=== PATIENT | female | born 1970 | race Caucasian/White ===

== ENCOUNTER → 2023-12-08 07:14 | Outpatient (REF) | payer BC, SELFPAY ==
[2023-12-08 08:07] LABS: % Basophils 1.8 % (0-2); % Eosinophils 5.3 % (0-6); % Immature Granulocytes 0.2 % (0-0.5); % Lymphocytes 27.8 % (20.5-51.1); % Monocytes 9.8 % (1.7-9.3); % Neutrophils 55.1 % (42.2-75.2); Absolute Basophils 0.1 10^3/uL (0-0.2); Absolute Eosinophils 0.3 10^3/uL (0-0.7); Absolute Lymphocytes 1.7 10^3/uL (1.2-3.4); Absolute Monocytes 0.6 10^3/uL (0.1-0.6); Absolute Neutrophils 3.3 10^3/uL (1.4-6.5); Hematocrit 42.5 % (37.0-47.0); Hemoglobin 14.4 g/dL (12.0-16.0); Mean Corp Hgb Conc. 33.9 g/dL (33.0-37.0); Mean Corpuscular Hgb 29.2 pg (27.0-31.0); Mean Corpuscular Volume 86.2 fL (81.0-99.0); Nucleated Red Blood Cells % 0 %; Platelet Count 313 10^3/uL (130-400); Red Blood Cell Count 4.93 10^6/uL (4.20-5.40); Red Cell Dist. Width 12.8 % (11.5-14.5); White Blood Cell Count 6.1 10^3/uL (4.8-10.8)
[2023-12-08 08:56] LABS: ALT (SGPT) 33 U/L (0-35); AST (SGOT) 33 U/L (14-36); Albumin 4.3 g/dl (3.5-5.0); Alkaline Phosphatase 109 U/L (38-126); Blood Urea Nitrogen 15 mg/dl (7-17); Carbon Dioxide 27 mmol/L (22-30); Chloride 104 mmol/L (98-107); Glucose 106 mg/dl (70-99); HDL Cholesterol 71 mg/dl; LDL Cholesterol, Calculated 86 mg/dl; Sodium 137 mmol/L (135-145); Total Bilirubin 0.7 mg/dl (0.2-1.3); Total Cholesterol 171 mg/dl (50-199); Total Protein 7.2 g/dl (6.3-8.2); Triglyceride 74 mg/dl (10-149); Very Low Density Lipoprotein 14 mg/dl (0-30); eGFR > 60.00
[2023-12-08 09:03] LABS: TSH Reflex To Free T4 1.92 uIU/ml (0.47-4.68)
[2023-12-09 23:01] LABS: Insulin, Random 23 uIU/mL
== END ==
LOC: REG 07:14
PROVIDERS: ATTENDING PHYSICIAN Nurse Practitioner Family; FAMILY PHYSICIAN Ophthalmology
DX: R73.01 Impaired fasting glucose (principal); E78.00 Pure hypercholesterolemia, unspecified; G47.33 Obstructive sleep apnea (adult) (pediatric); R53.83 Other fatigue
CPT/HCPCS: 36415; 80053; 80061; 83036; 83525; 84443; 85025

== ENCOUNTER 2023-12-28 02:30 | Emergency (ER) | payer BC, SELFPAY ==
--- NOTE | 2023-12-28 04:26 | DOWNTIME ---
There was a [employer] Downtime on 12/28/2023 from 0111 to 12/28/2023 at 0405. Downtime documentation of patient's care, including medication administrations, has been reconciled in the electronic record per guidelines. Refer to the
patient's paper chart under the miscellaneous tab to see printed paper medication records and downtime forms.
--- NOTE | 2023-12-28 04:26 | ED.GENMED ---
History of Present Illness
General
Chief Complaint: Breathing Problem
Source: patient and spouse
Exam Limitations: none
Nursing documentation reviewed up to this point in time: agreed with
History of Present Illness
History of Present Illness:
53-year-old female with a past medical history of SVT, prediabetes who presents to the emergency department for evaluation of palpitations. Patient reports abrupt onset about an hour prior to arrival when she got up to go to the bathroom. She says
that she began to notice her heart racing and she felt mildly short of breath. She says that she checked her heart rate on her Apple Watch and was told that she was in A-fib with significantly elevated heart rates. She came to the emergency room
for assessment. She s denies any chest pain. She denies any dizziness. She denies any other complaints. She says she has been in her normal state of health leading up to this. She does have a history of SVT in the past and follows with
[facility] for cardiology; she takes diltiazem and has been compliant without missed doses. She is not on any anticoagulation and has never had any history of A-fib or a flutter.
Past History
Past History
ED Past Medical History: None; Negative CAD, Cancer or IDDM
ED Past Surgical History: Gynecological
Social History
Tobacco: Non-smoker
Alcohol: Occasional
Drug: None
Personal:
Living: with family
Employment: Employed
Family History
Family History: Other (Reviewed and non-contributory)
Review of Systems
Review of Systems
All Other Systems: ROS reviewed and negative except as documented in HPI and ROS
Constitutional: Denies fever or chills
Respiratory: Reports trouble breathing; Denies cough
Cardiac: Reports palpitations; Denies chest pain, diaphoresis or syncope
ABD/GI: Denies abdominal pain, nausea, vomiting or diarrhea
: Denies flank pain
Musculoskeletal: Denies edema, neck pain or back pain
Neurological: Denies dizzy, headache, weakness or numbness
Phy Exam
Physical Exam
Physical Exam:
General: Awake, alert; no acute distress
Head: Normocephalic, atraumatic
Eyes: Conjunctiva normal
Throat: Airway intact, handling secretions
Neck: Trachea midline, supple without meningismus
Lungs: Clear to auscultation bilaterally, no wheezing, rales, rhonchi
Heart: Tachycardia with ostensibly regular rhythm, no murmurs, gallops, or rubs appreciated
Abd: Soft, non distended, nontender
Neuro: No gross deficits
Skin: no rash
Extremities: No edema in extremities, equal pulses in all extremities
Scores
[id number] Score for Afib Stroke Risk
Age in Years (65=0, 65-74=1, >/=75=2): <65
Sex (Female=+1): Female
Congestive Heart Failure History (Yes=+1): No
Hypertension History (Yes=+1): No
Stroke/TIA/Thromboembolism History (Yes=+2): No
Vascular Disease History (Yes=+1): No
Diabetes Mellitus (Yes=+1): No
Score: 1
Anticoagulation Recommendations: Consider anticoagulation (as validated in nonvalvular fib)
Heart Failure Risk
Heart Failure Risk Score: Not Applicable
Heart Score for Chest Pain Patients
STEMI patient?: Not applicable
Withdrawal Assessment of Alcohol
Withdrawal Assessment Completed?: Not applicable
Procedures
Cardioversion
Indication:: Other (atrial flutter)
Performed by:: Clay Mena MD
Synchronized?: Yes
Energy Used: 200 joules
Number of attempts: 1
Successful?: Yes
ASA Risk Score: Class II
Any reaction or bad outcome to prior sedation/anesthesia?: No history of a reaction
Sedation level to be attained: moderate
Chart and allergies reviewed: Yes
Patient reassessed prior to sedation: Yes
Time out completed at (validating right patient & procedure): 03:47
History of difficult intubation: No
Airway free of obstruction: Yes
Patient has a gag reflex: Yes
Patient is able to open mouth: Yes
Patient has no dentures: Yes
Patient has no loose teeth: Yes
Medication administered by Provider during Moderate Sedation: IV Propofol (mg)
Total dose administered: 90
Time drug administered: 03:47
Start Time: 03:47
Stop Time: 04:02
MDM/Problems Addressed
Differential Diagnosis Includes:
A-fib, a flutter, SVT, sinus tachycardia
MDM/Problems Addressed:
53-year-old female presents for evaluation of palpitations�abrupt onset an hour prior to arrival and her Apple Watch told her that she was in A-fib with accelerated heart rate. Blood pressure normal on arrival. Physical exam as above. EKG shows a
flutter with a heart rate of 142. Plan to place an IV check labs including a CBC and a CMP, thyroid studies. Will discuss with cardiology for recommendations�while she is not on anticoagulation she did have rather clear onset of symptoms may be a
reasonable candidate for ED cardioversion; will defer to cardiology recommendations.
Discussed with cardiology who recommended attempt at ED cardioversion and if successful can discharge on Eliquis. Discussed risks and benefits of procedure with patient she is agreeable to undergo the procedure, consent filed in medical record.
Will plan for cardioversion.
Patient successfully cardioverted as documented in procedure note. Asymptomatic after cardioversion, patient feeling well. Will continue to monitor plan for discharge if she remains asymptomatic in sinus rhythm after brief ED observation.
*Pulse Oximetry
Patient hypoxic: no
*EKG
Interpreted by ED Provider?: Yes
Heart Rate: 142
Rate: tachycardiac
Rhythm: atrial flutter
[place]: normal axis
Interval: normal interval
QRS Pattern: normal QRS
Ischemia: non-specific ST changes
*Critical Care Note
Total Time (30-74mins, 75-104mins- exclusive of procedures): 30
comment:
Critical care statement: A total of 30 minutes of critical care time was provided for this patient. This includes management of unstable vital signs, evaluation of the patient at bedside, frequent reassessment, discussion with
consultants/hospitalist, and review of pertinent medical records. This time was separate from time utilized to perform any aforementioned documented procedures
Data Reviewed
Source: patient and spouse
Patient Management
Discussion with other providers: Film Reader (Discussed with cardiology)
ED Attending Note
-
Portions of this chart may have been created with voice recognition software.� Occasional wrong word or��sound alike� substitutions may have occurred due to the inherent limitations of voice recognition software.
Discharge Plan
Departure
Patient with high blood pressure during this ER visit?: Yes
Discharge Problem:
Atrial flutter
Instructions: Atrial Flutter (DC), MODERATE SEDATION ADULT
Prescriptions:
New
Eliquis 5 mg tablet
5 mg PO BID Qty: 60 0RF
No Action
duloxetine 30 MG capsule,delayed release(DR/EC)
120 mg PO DAILY
fish oil-dha-epa 1 EACH capsule
1 ea PO DAILY
pilocarpine HCl 5 MG tablet
5 mg PO TID
hydroxychloroquine [Plaquenil] 200 MG tablet
200 mg PO BID
pregabalin [Lyrica] 150 MG capsule
150 mg PO TID
metoprolol succinate [Toprol XL] 25 MG tablet extended release 24 hr
12.5 mg PO DAILY Qty: 20 1RF
Referrals:
Adalberto Patel MD [Active] - Call in 1-3 days for appt
Charan Torres DO [Family Provider] -
Activity Restrictions/Additional Instructions:
Thank you for visiting the Emergency Department at [facility].
1. Please schedule a follow up appointment as directed. Call first thing tomorrow morning to make an appointment.
2. If indicated, please take your medications as instructed and indicated on discharge paperwork.
3. If any of your symptoms do not improve, or persist, or become more severe within 6-12 hours, please return to the emergency department for further care.
4. Please return to the emergency department if you develop a headache, neck pain/stiffness, fever greater than 100.4F, chest pain, shortness of breath, persistent nausea, vomiting, slurred speech, difficulty walking, numbness/tingling, weakness,
signs of infection or any other symptoms that are worrisome to you.
Please call [phone] if you have any questions.
[2023-12-28] MEDS: ELIQUIS 5 MG PO (05:05)
[2023-12-28 05:20] LABS: % Basophils 1.5 % (0-2); % Eosinophils 4.2 % (0-6); % Immature Granulocytes 0.3 % (0-0.5); % Lymphocytes 34.5 % (20.5-51.1); % Monocytes 10.2 % (1.7-9.3); % Neutrophils 49.3 % (42.2-75.2); Absolute Basophils 0.1 10^3/uL (0-0.2); Absolute Eosinophils 0.3 10^3/uL (0-0.7); Absolute Lymphocytes 2.7 10^3/uL (1.2-3.4); Absolute Monocytes 0.8 10^3/uL (0.1-0.6); Absolute Neutrophils 3.9 10^3/uL (1.4-6.5); Hematocrit 42.7 % (37.0-47.0); Hemoglobin 14.5 g/dL (12.0-16.0); Mean Corpuscular Hgb 29.1 pg (27.0-31.0); Mean Corpuscular Volume 85.7 fL (81.0-99.0); Mean Platelet Volume 10.2 fL (7.4-10.4); Nucleated Red Blood Cells % 0 %; Platelet Count 359 10^3/uL (130-400); Red Blood Cell Count 4.98 10^6/uL (4.20-5.40); Red Cell Dist. Width 12.7 % (11.5-14.5); White Blood Cell Count 7.9 10^3/uL (4.8-10.8)
[2023-12-28 05:24] LABS: ALT (SGPT) 32 U/L (0-35); AST (SGOT) 31 U/L (14-36); Albumin 4.2 g/dl (3.5-5.0); Alkaline Phosphatase 91 U/L (38-126); Blood Urea Nitrogen 20 mg/dl (7-17); Calcium 9.6 mg/dl (8.4-10.2); Carbon Dioxide 26 mmol/L (22-30); Chloride 104 mmol/L (98-107); Glucose 119 mg/dl (70-99); Potassium 3.8 mmol/L (3.5-5.1); Sodium 140 mmol/L (135-145); TSH Reflex To Free T4 4.48 uIU/ml (0.47-4.68); Total Bilirubin 0.6 mg/dl (0.2-1.3); Total Protein 6.9 g/dl (6.3-8.2); eGFR > 60.00
== END 2023-12-28 05:15 | disposition home or self-care (01) ==
LOC: EMR 02:30
PROVIDERS: EMERGENCY PHYSICIAN Emergency Medicine; FAMILY PHYSICIAN Family Medicine
DX: I48.92 Unspecified atrial flutter (principal); R03.0 Elevated blood-pressure reading, without diagnosis of hypertension; I47.10 Supraventricular tachycardia, unspecified
CPT/HCPCS: 99291; 92960; 99152; 80053; 84443; 85025; 93005

== ENCOUNTER → 2024-01-09 16:00 | Outpatient (REF) | payer BC, SELFPAY | LOC: DHCBC MAIN 16:00 | PROVIDERS: ATTENDING PHYSICIAN Internal Medicine; FAMILY PHYSICIAN Family Medicine | DX: I48.92 Unspecified atrial flutter (principal) | CPT/HCPCS: 93306 ==

== ENCOUNTER → 2024-01-17 06:27 | Outpatient (REF) | payer BC, SELFPAY ==
[2024-01-17] MEDS: FLUSH (NSS) 1 FLUSH IV (08:24)
[2024-01-17] MEDS: LEXISCAN 0.400000000000000022 MG IV (08:24)
== END ==
LOC: RCS 06:27
PROVIDERS: ATTENDING PHYSICIAN Internal Medicine; FAMILY PHYSICIAN Family Medicine
DX: I48.92 Unspecified atrial flutter (principal)
CPT/HCPCS: 78452; 93017; A9500; J2785

== ENCOUNTER → 2024-01-25 08:21 | Outpatient (REF) | payer BC, SELFPAY | LOC: RAD 08:21 | PROVIDERS: ATTENDING PHYSICIAN Internal Medicine; FAMILY PHYSICIAN Family Medicine | DX: R94.39 Abnormal result of other cardiovascular function study (principal); I48.0 Paroxysmal atrial fibrillation | CPT/HCPCS: 75574; Q9967 ==

== ENCOUNTER → 2024-03-26 17:03 | Outpatient (REF) | payer BC, SELFPAY | LOC: WDC 17:03 | PROVIDERS: ATTENDING PHYSICIAN Obstetrics & Gynecology Gynecology; FAMILY PHYSICIAN Family Medicine | DX: Z12.31 Encounter for screening mammogram for malignant neoplasm of breast (principal) | CPT/HCPCS: 77063; 77067 ==

== ENCOUNTER → 2024-04-05 08:06 | Outpatient (REF) | payer BC, SELFPAY ==
[2024-04-05 10:20] LABS: % Basophils 1.4 % (0-2); % Eosinophils 8.6 % (0-6); % Immature Granulocytes 0.2 % (0-0.5); % Lymphocytes 30.4 % (20.5-51.1); % Neutrophils 50.4 % (42.2-75.2); Absolute Basophils 0.1 10^3/uL (0-0.2); Absolute Eosinophils 0.6 10^3/uL (0-0.7); Absolute Monocytes 0.6 10^3/uL (0.1-0.6); Absolute Neutrophils 3.4 10^3/uL (1.4-6.5); Hematocrit 42.4 % (37.0-47.0); Hemoglobin 13.7 g/dL (12.0-16.0); Mean Corp Hgb Conc. 32.3 g/dL (33.0-37.0); Mean Corpuscular Hgb 28.8 pg (27.0-31.0); Mean Corpuscular Volume 89.1 fL (81.0-99.0); Mean Platelet Volume 10.1 fL (7.4-10.4); Nucleated Red Blood Cells % 0 %; Platelet Count 311 10^3/uL (130-400); Red Blood Cell Count 4.76 10^6/uL (4.20-5.40); Red Cell Dist. Width 12.9 % (11.5-14.5); White Blood Cell Count 6.6 10^3/uL (4.8-10.8)
[2024-04-05 10:49] LABS: ALT (SGPT) 30 U/L (0-35); AST (SGOT) 28 U/L (14-36); Albumin 4.5 g/dl (3.5-5.0); Alkaline Phosphatase 89 U/L (38-126); Blood Urea Nitrogen 22 mg/dl (7-17); Calcium 9.4 mg/dl (8.4-10.2); Carbon Dioxide 27 mmol/L (22-30); Chloride 104 mmol/L (98-107); Glucose 108 mg/dl (70-99); HDL Cholesterol 77 mg/dl; LDL Cholesterol, Calculated 84 mg/dl; Magnesium 2.1 mg/dl (1.6-2.3); Potassium 4.3 mmol/L (3.5-5.1); Sodium 141 mmol/L (135-145); Total Bilirubin 0.4 mg/dl (0.2-1.3); Total Cholesterol 175 mg/dl (50-199); Total Protein 7.4 g/dl (6.3-8.2); Triglyceride 74 mg/dl (10-149); Very Low Density Lipoprotein 14 mg/dl (0-30); eGFR > 60.00
[2024-04-05 10:53] LABS: FSH 68.1 mIU/ml; Free T4 1.11 ng/dl (0.78-2.19); Progesterone 0.72 ng/ml; Vitamin D, 25-OH*** 39.9 ng/mL (30-80)
[2024-04-05 10:56] LABS: Free T3 5.07 pg/ml (2.77-5.27)
[2024-04-05 11:07] LABS: TSH 1.14 uIU/ml (0.47-4.68)
[2024-04-05 11:29] LABS: Vitamin B12 649 pg/ml (239-931)
[2024-04-05 11:50] LABS: Glycohemoglobin (HgbA1c) 5.6 % (4.0-5.6)
[2024-04-06 18:58] LABS: DHEA Sulfate 73 ug/dL (19-205)
[2024-04-07 06:03] LABS: IGF-1 Z Score Calculation 0.8; Insulin-like Growth Factor I 163 ng/mL (49-234)
== END ==
LOC: HWLAB 08:06
PROVIDERS: ATTENDING PHYSICIAN Physician Assistant; FAMILY PHYSICIAN Family Medicine; REFERRING PHYSICIAN Family Medicine Sports Medicine
DX: E78.00 Pure hypercholesterolemia, unspecified (principal); Z13.1 Encounter for screening for diabetes mellitus; R73.01 Impaired fasting glucose; E88.810 Metabolic syndrome; E66.09 Other obesity due to excess calories; R20.0 Anesthesia of skin; N95.1 Menopausal and female climacteric states; R53.83 Other fatigue; E55.9 Vitamin D deficiency, unspecified
CPT/HCPCS: 36415; 80053; 80061; 82306; 82607; 82627; 82670; 83001; 83036; 83735; 84144; 84270; 84305; 84402; 84403; 84439; 84443; 84481; 85025

== ENCOUNTER 2024-06-15 21:16 | Emergency (ER) | payer BC, SELFPAY ==
[2024-06-15] VITALS (15 sets, daily range): BP systolic 119–208; BP diastolic 61–161
[2024-06-15 21:39] LABS: % Basophils 1.6 % (0-2); % Immature Granulocytes 0.3 % (0-0.5); % Lymphocytes 37.4 % (20.5-51.1); % Monocytes 8.4 % (1.7-9.3); % Neutrophils 49.3 % (42.2-75.2); Absolute Basophils 0.1 10^3/uL (0-0.2); Absolute Eosinophils 0.3 10^3/uL (0-0.7); Absolute Lymphocytes 3.4 10^3/uL (1.2-3.4); Absolute Monocytes 0.8 10^3/uL (0.1-0.6); Absolute Neutrophils 4.4 10^3/uL (1.4-6.5); Hematocrit 41.2 % (37.0-47.0); Hemoglobin 14.1 g/dL (12.0-16.0); Mean Corp Hgb Conc. 34.2 g/dL (33.0-37.0); Mean Corpuscular Volume 84.8 fL (81.0-99.0); Mean Platelet Volume 9.6 fL (7.4-10.4); Nucleated Red Blood Cells % 0 %; Platelet Count 321 10^3/uL (130-400); Red Blood Cell Count 4.86 10^6/uL (4.20-5.40); Red Cell Dist. Width 12.7 % (11.5-14.5)
[2024-06-15 21:57] LABS: ALT (SGPT) 18 U/L (0-35); AST (SGOT) 26 U/L (14-36); Albumin 4.6 g/dl (3.5-5.0); Alkaline Phosphatase 88 U/L (38-126); Blood Urea Nitrogen 20 mg/dl (7-17); Calcium 9.6 mg/dl (8.4-10.2); Carbon Dioxide 24 mmol/L (22-30); Chloride 106 mmol/L (98-107); Glucose 133 mg/dl (70-99); Magnesium 1.9 mg/dl (1.6-2.3); Potassium 3.4 mmol/L (3.5-5.1); Sodium 139 mmol/L (135-145); Total Bilirubin 0.4 mg/dl (0.2-1.3); Total Protein 7.4 g/dl (6.3-8.2); eGFR > 60.00
[2024-06-15] MEDS: ELIQUIS 5 MG PO (23:18)
--- NOTE | 2024-06-16 01:16 | ED.GENMED ---
History of Present Illness
General
Chief Complaint: Heart Rate Problem
Source: patient and spouse
Exam Limitations: none
Time Seen by Provider: 06/15/24 21:28
Nursing documentation reviewed up to this point in time: agreed with
History of Present Illness
History of Present Illness:
54-year-old female with a past medical history of A-fib/flutter, SVT, prediabetes, SUSSY who presents to the emergency room with her for evaluation of palpitations and tachycardia. Patient reports that she was resting this evening when she
had sudden onset of palpitations and dizziness, checked her heart rate using Apple Watch and found to be in atrial fibrillation. Heart rate in the 150s to 160s. Came to the emergency room for assessment. She did notably have similar episode in
December; she was cardioverted in the emergency room, started on Eliquis which she continued for 30 days and followed up with Dr. Patel. Eliquis was discontinued after 30 days and she is no longer on anticoagulation. She denies any symptoms
prior to this evening; has otherwise been in her normal state of health. She denies any chest pain. She says she has some mild shortness of breath. She denies any other complaints.
Past History
Past History
ED Past Medical History: None; Negative CAD, Cancer or IDDM
ED Past Surgical History: Gynecological
Social History
Tobacco: Non-smoker
Alcohol: Occasional
Drug: None
Personal:
Living: with family
Employment: Employed
Family History
Family History: Other (Reviewed and non-contributory)
Review of Systems
Review of Systems
All Other Systems: ROS reviewed and negative except as documented in HPI and ROS
Respiratory: Reports trouble breathing
Cardiac: Reports palpitations; Denies chest pain, diaphoresis or syncope
ABD/GI: Denies abdominal pain, nausea or vomiting
Musculoskeletal: Denies edema
Neurological: Reports dizzy; Denies headache
Phy Exam
Physical Exam
Physical Exam:
General: Awake, alert, not in acute distress
Head: Normocephalic, atraumatic
Eyes: Conjunctiva normal, pupils equal round reactive to light bilaterally
Throat: Airway intact, handling secretions
Neck: Trachea midline, supple without meningismus
Lungs: Clear to auscultation bilaterally, no wheezing, rales, rhonchi
Heart: Tachycardia with irregular rhythm, no murmurs, gallops, or rubs
Neuro: No gross deficits
Skin: no rash
Extremities: No edema in extremities, warm and well-perfused
Scores
[id number] Score for Afib Stroke Risk
Age in Years (65=0, 65-74=1, >/=75=2): <65
Sex (Female=+1): Female
Congestive Heart Failure History (Yes=+1): No
Hypertension History (Yes=+1): No
Stroke/TIA/Thromboembolism History (Yes=+2): No
Vascular Disease History (Yes=+1): No
Diabetes Mellitus (Yes=+1): No
Score: 1
Anticoagulation Recommendations: Consider anticoagulation (as validated in nonvalvular fib)
Heart Failure Risk
Heart Failure Risk Score: Not Applicable
Heart Score for Chest Pain Patients
STEMI patient?: Not applicable
Withdrawal Assessment of Alcohol
Withdrawal Assessment Completed?: Not applicable
Course
Orders/Labs/Results
Orders:
Orders
06/15/24 21:17
Electrocardiogram (*1) Urgent
Reason for Study: Tachycardia
EKG- Treatment ONCE
06/15/24 21:31
Complete Blood Count/With Diff Urgent
Comprehensive Metabolic Panel Urgent
Magnesium Urgent
06/15/24 21:59
Propofol [Diprivan] 20 ml .ROUTE .STK-MED
06/15/24 22:01
Apixaban [Eliquis] 5 mg PO ONCE ONE
Abnormal Lab Results
06/15/24
21:31
Absolute Monos (auto) 0.8 H 10^3/uL
(0.1-0.6)
Potassium 3.4 L mmol/L
(3.5-5.1)
BUN 20 H mg/dl
(7-17)
Glucose 133 H mg/dl
(70-99)
06/15/24 21:31
06/15/24 21:31
Vital Signs
Initial and Last Documented VS:
Initial Vital Signs
Pulse Resp
160 22
06/15/24 21:20 06/15/24 21:20
Last Documented Vital Signs
Temp Pulse Resp BP Pulse Ox
36.7 C 98 14 132/79 95
06/15/24 23:23 06/15/24 23:03 06/15/24 23:03 06/15/24 23:03 06/15/24 23:03
Procedures
Moderate Sedation
Moderate Sedation Start Time(when first medication is given): 22:05
Moderate Sedation Procedure End Time: 22:23
Cardioversion
Indication:: Afib
Performed by:: Clay Mena MD
Synchronized?: Yes
Energy Used: 200 joules
Number of attempts: 2 (200J x1, 300J x1)
Successful?: Yes
ASA Risk Score: Class II
Any reaction or bad outcome to prior sedation/anesthesia?: No history of a reaction
Sedation level to be attained: moderate
Chart and allergies reviewed: Yes
Patient reassessed prior to sedation: Yes
Time out completed at (validating right patient & procedure): 22:05
History of difficult intubation: No
Airway free of obstruction: Yes
Patient has a gag reflex: Yes
Patient is able to open mouth: Yes
Patient has no dentures: Yes
Patient has no loose teeth: Yes
Medication administered by Provider during Moderate Sedation: IV Propofol (mg)
Total dose administered: 160
Time drug administered: 22:05
Start Time: 22:05
Stop Time: 22:21
MDM/Problems Addressed
Differential Diagnosis Includes:
Symptomatic A-fib
MDM/Problems Addressed:
54-year-old female presents for evaluation of tachycardia and palpitations, Apple Watch notes A-fib. Similar episode in December was cardioverted in the ER; had 30 days of anticoagulation after cardioversion but is no longer on anticoagulation.
She sees Dr. Patel for cardiology. EKG on arrival confirms A-fib with RVR. Plan to place an IV check labs including a CBC and CMP. Check mag level. Will provide some fluids. Discussed with cardiology.
Labs reviewed: CBC unremarkable, CMP shows marginal hypokalemia, acceptable magnesium level. Case discussed with cardiology given clear onset just prior to arrival safe for ED cardioversion despite no anticoagulant on board. I did recommend 30
days of anticoagulation after cardioversion. I spoke to the patient and she is agreeable to this plan. Will proceed with ED cardioversion.
Patient cardioverted as documented procedure note. EKG confirms sinus rhythm. Will continue to monitor after sedation.
Patient awake and alert, feeling much better�'back to my normal self.' Heart rate in the 90s, sinus rhythm on the monitor. Stable for discharge will start on Eliquis. Advised to follow-up with cardiology as an outpatient. She is comfortable with
this plan. All questions answered.
Chronic conditions affecting care:
Atrial fibrillation/flutter
Acute Exacerbation and/or Progression of Chronic Illness:
Acutely hypertensive resolved without intervention�continue to monitor but no additional antihypertensives indicated at present
Acute Exacerbation and/or Progression of Chronic Illness: HTN
*Pulse Oximetry
Patient hypoxic: no
*EKG
Interpreted by ED Provider?: Yes
Heart Rate: 140
Rate: tachycardiac
Rhythm: a-fib
[place]: normal axis
Interval: normal interval
QRS Pattern: normal QRS
Ischemia: non-specific ST changes
*Critical Care Note
Total Time (30-74mins, 75-104mins- exclusive of procedures): Not Applicable
Data Reviewed
Review of Other/Old Records Reveals: Labs and Records
Source: patient, records and spouse
Patient Management
Discussion with other providers: Multi Share Program Coordinator (Discussed with cardiology)
ED Attending Note
-
Portions of this chart may have been created with voice recognition software.� Occasional wrong word or��sound alike� substitutions may have occurred due to the inherent limitations of voice recognition software.
Discharge Plan
Departure
Patient Disposition: Home (Routine Discharge)
Date of Disposition: 06/15/24
Time of Disposition: 23:29
Patient with high blood pressure during this ER visit?: Yes
Discharge Problem:
Atrial fibrillation status post cardioversion
Instructions: Atrial Fibrillation (DC), MODERATE SEDATION ADULT
Prescriptions:
New
Eliquis 5 mg tablet
5 mg PO BID Qty: 60 0RF
No Action
fish oil-dha-epa 1 EACH capsule
1 ea PO DAILY
pregabalin [Lyrica] 150 MG capsule
50 mg PO DAILY
Eliquis 5 mg tablet
5 mg PO BID Qty: 60 0RF
celecoxib [Celebrex] 200 mg Capsule
200 mg PO DAILY
pilocarpine HCl [Salagen (pilocarpine)] 5 mg Tablet
5 mg PO BID
atorvastatin 20 mg Tablet
20 mg PO DAILY
metformin 1,000 mg Tablet
1,000 mg PO DAILY
diltiazem HCl 180 mg Capsule,Ext.Rel 24h Degradable
180 mg PO DAILY
nortriptyline 50 mg Capsule
50 mg PO QPM
duloxetine [Cymbalta] 60 mg Capsule,Delayed Release(Dr/Ec)
60 mg PO QPM
Referrals:
Adalberto Patel MD [Active] - Call in 1-3 days for appt
Charan Torres DO [Family Provider] -
Activity Restrictions/Additional Instructions:
Thank you for visiting the Emergency Department at [facility].
1. Please schedule a follow up appointment as directed. Call first thing tomorrow morning to make an appointment.
2. If indicated, please take your medications as instructed and indicated on discharge paperwork.
3. If any of your symptoms do not improve, or persist, or become more severe within 6-12 hours, please return to the emergency department for further care.
4. Please return to the emergency department if you develop a headache, neck pain/stiffness, fever greater than 100.4F, chest pain, shortness of breath, persistent nausea, vomiting, slurred speech, difficulty walking, numbness/tingling, weakness,
signs of infection or any other symptoms that are worrisome to you.
Please call [phone] if you have any questions.
Interventions
Interventions:
*Risk Screen - Suicide Last Done: 06/15/24 21:26
*General Assessment Last Done: 06/15/24 21:26
*Neglect/Abuse Screening Last Done: 06/15/24 21:26
*Nursing Disposition Last Done: 06/15/24 23:40
ED- Cardiac Assessment Last Done: 06/15/24 21:30
ED- Pulmonary Assessment Last Done: 06/15/24 21:30
Discharge Date and Time
Discharge Date/Time: 06/15/24 23:42
Print Language: BULGARIAN
== END 2024-06-15 23:42 | disposition home or self-care (01) ==
LOC: EMR 21:16
PROVIDERS: EMERGENCY PHYSICIAN Emergency Medicine; FAMILY PHYSICIAN Family Medicine
DX: I48.91 Unspecified atrial fibrillation (principal); G47.33 Obstructive sleep apnea (adult) (pediatric); Z79.01 Long term (current) use of anticoagulants
CPT/HCPCS: 99283; 92960; 80053; 83735; 85025; 93005

== ENCOUNTER 2024-07-31 05:50 | Day surgery (SDC) | payer BC, SELFPAY ==
[2024-07-16 10:45] LABS: % Basophils 1.2 % (0-2); % Eosinophils 1.6 % (0-6); % Immature Granulocytes 0.2 % (0-0.5); % Lymphocytes 22.7 % (20.5-51.1); % Monocytes 9.1 % (1.7-9.3); % Neutrophils 65.2 % (42.2-75.2); Absolute Basophils 0.1 10^3/uL (0-0.2); Absolute Eosinophils 0.1 10^3/uL (0-0.7); Absolute Lymphocytes 1.9 10^3/uL (1.2-3.4); Absolute Monocytes 0.7 10^3/uL (0.1-0.6); Absolute Neutrophils 5.3 10^3/uL (1.4-6.5); Hematocrit 41.3 % (37.0-47.0); Hemoglobin 13.9 g/dL (12.0-16.0); Mean Corp Hgb Conc. 33.7 g/dL (33.0-37.0); Mean Corpuscular Hgb 28.5 pg (27.0-31.0); Mean Corpuscular Volume 84.8 fL (81.0-99.0); Mean Platelet Volume 9.6 fL (7.4-10.4); Nucleated Red Blood Cells % 0 %; Platelet Count 320 10^3/uL (130-400); Red Blood Cell Count 4.87 10^6/uL (4.20-5.40); Red Cell Dist. Width 12.6 % (11.5-14.5); White Blood Cell Count 8.2 10^3/uL (4.8-10.8)
[2024-07-16 10:55] LABS: ALT (SGPT) 19 U/L (0-35); AST (SGOT) 27 U/L (14-36); Albumin 4.8 g/dl (3.5-5.0); Alkaline Phosphatase 86 U/L (38-126); Blood Urea Nitrogen 17 mg/dl (7-17); Calcium 9.9 mg/dl (8.4-10.2); Carbon Dioxide 26 mmol/L (22-30); Chloride 101 mmol/L (98-107); Glucose 96 mg/dl (70-99); Potassium 4.2 mmol/L (3.5-5.1); Sodium 140 mmol/L (135-145); Total Bilirubin 0.6 mg/dl (0.2-1.3); Total Protein 7.4 g/dl (6.3-8.2); eGFR > 60.00
[2024-07-16 14:25] VITALS: BMI 35.6
[2024-07-31] VITALS (10 sets, daily range): BP systolic 117–148; BP diastolic 69–83
[2024-07-31 08:51] LABS: ACT-LR - POC 282 Seconds (116-155)
[2024-07-31 09:12] LABS: ACT-LR - POC 294 Seconds (116-155)
[2024-07-31 09:34] LABS: ACT-LR - POC 300 Seconds (116-155)
[2024-07-31 09:53] LABS: ACT-LR - POC 302 Seconds (116-155)
[2024-07-31 10:19] LABS: ACT-LR - POC 337 Seconds (116-155)
--- NOTE | 2024-07-31 11:02 | ITS.CL.ABL ---
[facility] - Ablation
Ablation
Procedure Report:
AFIB ablation:
Ms. Bautista is a very pleasant 54 yr old woman with symptomatic paroxysmal AF and atrial flutter and had recurrent atrial fibrillation failed Diltiazem and anticoagulated with Eliquis is recommended �AF / Flutter ablation.
Date of the Procedure:
07/31/2024
Indications:
Paroxysmal atrial fibrillation / Atrial Flutter
Pre-Operative Diagnosis:
Paroxysmal atrial fibrillation / Atrial Flutter
Post-Operative Diagnosis:
Paroxysmal atrial fibrillation / Atrial Flutter
Procedure Performed:
Atrial fibrillation ablation with Pulsed-Field approach for pulmonary vein isolation
Posterior wall isolation
Roof dependent flutter ablation
Mitral flutter ablation with lateral mitral isthmus ablation.
Performing Physician:
Phil Gordillo MD
Assistants:
EP staff
Anesthesia:
See anesthesia records
Detailed Description of the Procedure:
Written informed consent was obtained from the patient after a full explanation of the risks and benefits of the procedure including the risks of sedation and anesthesia.
The patient was brought to the electrophysiology laboratory in stable condition in fasting state. Continuous electrocardiographic and hemodynamic monitoring was initiated.
The initial rhythm was normal sinus rhythm.
The procedure site was meticulously prepared with surgical scrub and allowed to dry with no pooling. Sterile draping was applied to cover the procedure site. The image intensifier was draped with sterile bag and positioned over the patient. After
infusion of local anesthetic, vascular access was obtained under ultrasound guidance and sheaths were placed over guide wire as detailed below.
Sheath and Catheter Placement:
The following catheters / sheaths were placed
Sheaths:
��������� 17Fr steerable sheath (Faradrive�, [employer]) in right femoral upgraded from SL1 sheath
��������� 9Fr in right femoral vein
��������� 7Fr in right femoral vein
Catheters:
��������� Carto Pentaray mapping catheter � at locations of RA, LA
��������� Farawave� PFA catheter
��������� ICE catheter -AcuNav - at locations of RA, SVC, and RV.
��������� Decapolar Bard catheter in RA and CS
Intracardiac ECHO:
An 8-Cuban AcuNav intracardiac ECHO (ICE) probe was advanced through the 9-Cuban sheath in the right femoral vein into the right atrium under fluoroscopic and ICE ultrasound image guidance and a baseline ECHO study was performed. The left atrial
size was dilated. There was mild tricuspid regurgitation. The aortic valve was grossly normal. There was normal left ventricular systolic functions. There is trace pericardial effusion. All the four veins were identified and has flow identified.
During the procedure, ICE was used for monitoring of complications, guidance of trans-septal puncture, monitor the catheter position and tracking ablation lesions. No change in the pericardial space noted throughout the procedure.
Trans-septal Puncture:
Heparin was initiated and infused to maintain appropriate ACT. A J-tipped guidewire was advanced through the 8-Cuban sheath in the right femoral vein into the superior vena cava under fluoroscopic and ICE guidance. The 9-Cuban sheath was exchanged
for a SL1 sheath which was advanced into the superior vena cava. A BRK needle was placed in the SL1 sheath. The apparatus was withdrawn until it was in contact with the fossa ovalis. The position was adjusted based on fluoroscopy and ultrasound
images from ICE. Under fluoroscopic, hemodynamic and ICE ultrasound guidance, left atrium was cannulated by applying RF energy. Once atrial septum was cannulated, the BMW wire was advanced through the needle into the left atrium. The guide wire was
advanced into the left superior pulmonary vein. Both the sheath and the dilator was advanced into the left atrium. The dilator with the needle was withdrawn. Blood was aspirated from the SL1 and arterial blood confirmed. The sheath was flushed.
Saline injection noted into the left atrium on ICE.
The using the [employer] Protrack the SL1 was exchanged for Faradrive sheath. The mapping catheter was advanced in the sheath into the left pulmonary vein. Left atrial pressure was measured.
3D Electroanatomic Mapping:
Using the Penta-ray catheter advanced through sheath into the left atrium, an electroanatomic map (EAM) of the left atrium was created using Carto mapping system. The map was used for localization of catheter position and tacking of ablation
lesions.
The EAM of the left atrium showed 4 pulmonary veins with all 4 veins electrically connected to the body the LA. It showed no sign of significant scar in the LA. The LA was mildly dilated in size.
Following the EAM, preparation were made for ablation.
While mapping the LA, patient went into atrial fibrillation.
Ablation:
Ablation # 1: Pulmonary vein Isolation:
Glycopyrrolate 0.2 mg was given prior to the placement of ablation. Using K121 pulsed wave ablation system, pulmonary vein isolation was achieved. First the ablation catheter was placed in the LIPV and ostial ablation lesions were performed in a
counter clock palacio approach all around the PV ostium circumferentially. Then the catheter was placed on the antral location and multiple ablation lesions were placed circumferentially on the antrum of the vein.
In the similar fashion, the LSPV were isolated.
Then the catheter was moved to right sided veins. The ostial and antral ablations were placed as noted above to the RSPV and RIPV.
With the isolation of RIPV, patient went into sinus rhythm.
Ablation #2: Roof dependent flutter ablation
The venous entrance and exit block was tested and while in the posterior wall, patient went into fast atrial flutter at 210 ms CL.
The flutter was eccentric on the CS and was coming from the LA. The entrainment from CS showed the CS was close to the circuit but not in it.
This was consistent with roof dependent atrial flutter estephanie ablation of the LSPV and RSPV close to each other.
Using the pulsed field ablation catheter, the catheter was placed between left superior pulmonary vein and right severe pulmonary vein with series of overlapping ablation lesions placed.
Tachycardia change into a concentric tachycardia of 220ms.
Ablation # 3: Posterior wall isolation:
Using the pulsed field ablation catheter, the catheter was placed on the posterior wall and moved around the posterior wall to have adequate contact and ablations were placed isolating the posterior wall.
Electroanatomic mapping of atrial flutter in RA and LA
Once roof and posterior wall isolation was achieved, decision was made to map right side given concentric nature and false tachycardia.
The tachycardia was mapped in the right atrium first that shows the earliest concentric part at the atrial septum consistent with left atrial origin. The CS showed concentric activation.
Left atrium was mapped in detail in the tachycardia showing anticlockwise mitral valve flutter involving the mitral isthmus.�
Ablation #4 atypical atrial flutter involving the mitral isthmus ablation:
Using the pulsed field ablation catheter, a series of ablations were placed on the mitral isthmus.� With the ablation of mitral isthmus, patient's tachycardia terminated into normal sinus rhythm.
Additional ablations were placed to confirm block at the mitral isthmus.
Post ablation Electroanatomic mapping:
Once ablation was completed, the EAM of the LA was done again in sinus rhythm with excellent demarcation of LA myocardium and isolated antral tissue.
The distal CS was paced and left atrium was mapped showing block at the mitral isthmus with transmitral isthmus conduction time of >200 ms.
EPS and Confirmation of the PVI and bidirectional block:
Following achievement of entrance block at the pulmonary veins, pacing from the mapping catheter in each of the four veins at 10 milliamps for 2 milliseconds showed entrance and exit block. All PVI were rechecked at the end of the case and remained
isolated with dissociated and local capture with pacing. Entrance and exit block were demonstrated in all veins.
Procedure End
ICE study was done again that showed no epicardial accumulation. No complications noted.
Following the completion of the EP study, catheters were removed. Protamine 40 mg was given at the end of the procedure and ACT was checked repeatedly. The sheaths were removed and hemostasis achieved with Vascade and manual compression after
acceptable ACT is achieved.
Left atrial Pressure:
Pre-Procedure: Mean LA pressure was 5mmHg
Post-Procedure: Mean LA pressure was 4mmHg
Post-Procedure: Mean LR pressure was 1mmHg
Estimated Blood loss:
<10 cc
Specimens Removed:
None.
Implants / Devices:
None
Urine output:
None
Packs / Drains/ Tubes:
None
Instrument / Sponge Count Correct:
Yes
Complications of the Procedure:
None
Condition of Patient at Time of Transfer:
Hemodynamically stable with no neurological or vascular compromise.
Summary:
Successful atrial fibrillation ablation with Pulsed Field approach for pulmonary vein isolation, roof dependent flutter ablation, posterior wall isolation, mitral flutter ablation
Figures from the Procedure:
Figure 1: The electroanatomic mapping (EAM) of the left atrium with bipolar voltage (purple indicates normal electrical activity with bernal as no myocardial muscle electric activity indicating a line of block or scar.
[2024-07-31] MEDS: ANESTHETIC LOZENGE 1 LOZENGE PO (11:17)
--- NOTE | 2024-07-31 13:22 | W.PN.UPDATE ---
Update Note
Progress Note Update
54 yo WF s/p PVI (same day). She feels good, no cp, sob, divya diet, voiding, amb w/o dizziness, EKG SR, R fem site c/d/i no HT, soft. She will continue OAC Eliquis dose at home tonight. Activity restrictions reviewed. She will f/u [facility] in 2 weeks. She
is for d/c home after 130p.
Procedure Performed:
Atrial fibrillation ablation with Pulsed-Field approach for pulmonary vein isolation
Posterior wall isolation
Roof dependent flutter ablation
Mitral flutter ablation with lateral mitral isthmus ablation.
== END 2024-07-31 13:25 | disposition home or self-care (01) ==
LOC: CATH 05:50
PROVIDERS: ATTENDING PHYSICIAN Internal Medicine Cardiovascular Disease; FAMILY PHYSICIAN Family Medicine; OTHER PHYSICIAN Internal Medicine
DX: I48.0 Paroxysmal atrial fibrillation (principal); I47.10 Supraventricular tachycardia, unspecified; I48.4 Atypical atrial flutter; E66.9 Obesity, unspecified; R73.03 Prediabetes; G47.33 Obstructive sleep apnea (adult) (pediatric); Z79.01 Long term (current) use of anticoagulants; Z79.899 Other long term (current) drug therapy
CPT/HCPCS: C1730; C1893; C1732; C1892; C1759; 36415; 80053; 85025; 85347; 86850; 86900; 86901; 93005; 93655; 93656; 93657; C1733; C1760; C1766; C1769; C1894

== ENCOUNTER → 2024-09-13 10:13 | Outpatient (REF) | payer BC, SELFPAY ==
[2024-09-13 11:23] LABS: % Basophils 1.7 % (0-2); % Eosinophils 3.4 % (0-6); % Immature Granulocytes 0.5 % (0-0.5); % Lymphocytes 23.6 % (20.5-51.1); % Monocytes 9.4 % (1.7-9.3); % Neutrophils 61.4 % (42.2-75.2); Absolute Basophils 0.1 10^3/uL (0-0.2); Absolute Eosinophils 0.3 10^3/uL (0-0.7); Absolute Lymphocytes 1.8 10^3/uL (1.2-3.4); Absolute Monocytes 0.7 10^3/uL (0.1-0.6); Absolute Neutrophils 4.8 10^3/uL (1.4-6.5); Hematocrit 41.5 % (37.0-47.0); Hemoglobin 13.9 g/dL (12.0-16.0); Mean Corp Hgb Conc. 33.5 g/dL (33.0-37.0); Mean Corpuscular Hgb 29.5 pg (27.0-31.0); Mean Corpuscular Volume 88.1 fL (81.0-99.0); Mean Platelet Volume 9.8 fL (7.4-10.4); Nucleated Red Blood Cells % 0 %; Platelet Count 344 10^3/uL (130-400); Red Blood Cell Count 4.71 10^6/uL (4.20-5.40); Red Cell Dist. Width 12.7 % (11.5-14.5); White Blood Cell Count 7.7 10^3/uL (4.8-10.8)
[2024-09-13 11:36] LABS: ALT (SGPT) 32 U/L (0-35); AST (SGOT) 30 U/L (14-36); Albumin 4.6 g/dl (3.5-5.0); Alkaline Phosphatase 96 U/L (38-126); Blood Urea Nitrogen 15 mg/dl (7-17); Calcium 9.4 mg/dl (8.4-10.2); Carbon Dioxide 26 mmol/L (22-30); Chloride 102 mmol/L (98-107); Glucose 97 mg/dl (70-99); Potassium 4.1 mmol/L (3.5-5.1); Sodium 139 mmol/L (135-145); Total Bilirubin 0.5 mg/dl (0.2-1.3); Total Protein 7.3 g/dl (6.3-8.2); eGFR > 60.00
[2024-09-13 11:49] LABS: FSH 56.1 mIU/ml; Progesterone 3.92 ng/ml
[2024-09-13 11:51] LABS: Free T3 5.41 pg/ml (2.77-5.27)
[2024-09-13 12:03] LABS: TSH 1.32 uIU/ml (0.47-4.68)
[2024-09-15 02:48] LABS: DHEA Sulfate 94 ug/dL (19-205)
[2024-09-15 05:06] LABS: IGF-1 Z Score Calculation -0.4; Insulin-like Growth Factor I 99 ng/mL (48-235)
== END ==
LOC: REG 10:13
PROVIDERS: ATTENDING PHYSICIAN Family Medicine Sports Medicine; FAMILY PHYSICIAN Family Medicine
DX: N95.1 Menopausal and female climacteric states (principal); R53.83 Other fatigue
CPT/HCPCS: 36415; 80053; 82627; 82670; 83001; 84144; 84270; 84305; 84402; 84403; 84439; 84443; 84481; 85025

== ENCOUNTER → 2024-12-10 07:04 | Outpatient (REF) | payer BC, SELFPAY ==
[2024-12-10 07:51] LABS: % Basophils 1.6 % (0-2); % Eosinophils 4.6 % (0-6); % Immature Granulocytes 0.2 % (0-0.5); % Lymphocytes 15.6 % (20.5-51.1); % Monocytes 15.4 % (1.7-9.3); % Neutrophils 62.6 % (42.2-75.2); Absolute Basophils 0.1 10^3/uL (0-0.2); Absolute Eosinophils 0.2 10^3/uL (0-0.7); Absolute Lymphocytes 0.8 10^3/uL (1.2-3.4); Absolute Monocytes 0.8 10^3/uL (0.1-0.6); Absolute Neutrophils 3.1 10^3/uL (1.4-6.5); Hematocrit 41.8 % (37.0-47.0); Hemoglobin 13.7 g/dL (12.0-16.0); Mean Corp Hgb Conc. 32.8 g/dL (33.0-37.0); Mean Corpuscular Volume 88.6 fL (81.0-99.0); Mean Platelet Volume 9.8 fL (7.4-10.4); Nucleated Red Blood Cells % 0 %; Platelet Count 257 10^3/uL (130-400); Red Blood Cell Count 4.72 10^6/uL (4.20-5.40); Red Cell Dist. Width 12.7 % (11.5-14.5)
[2024-12-10 08:20] LABS: ALT (SGPT) 23 U/L (0-35); AST (SGOT) 24 U/L (14-36); Albumin 4.8 g/dl (3.5-5.0); Alkaline Phosphatase 74 U/L (38-126); Blood Urea Nitrogen 19 mg/dl (7-17); Calcium 8.7 mg/dl (8.4-10.2); Carbon Dioxide 30 mmol/L (22-30); Chloride 101 mmol/L (98-107); Glucose 96 mg/dl (70-99); HDL Cholesterol 54 mg/dl; LDL Cholesterol, Calculated 74 mg/dl; Sodium 140 mmol/L (135-145); Total Bilirubin 0.6 mg/dl (0.2-1.3); Total Cholesterol 143 mg/dl (50-199); Total Protein 7.8 g/dl (6.3-8.2); Triglyceride 79 mg/dl (10-149); Very Low Density Lipoprotein 15 mg/dl (0-30); eGFR > 60.00
[2024-12-10 08:29] LABS: Urine Albumin 1+ (Neg - Trace); Urine Bilirubin Negative (Negative); Urine Character Clear (Clear); Urine Color Yellow; Urine Glucose Negative (Negative); Urine Ketone Negative (Negative); Urine Leukocyte 3+ (Negative); Urine Nitrite Negative (Negative); Urine Occult Blood 2+ (Negative); Urine Urobilinogen Negative (Neg - 1+)
[2024-12-10 10:36] LABS: Glycohemoglobin (HgbA1c) 5.7 % (4.0-5.6)
[2024-12-10 15:59] LABS: Urine Squamous Cell >30 /LPF (Few)
[2024-12-10 16:00] LABS: Urine Bacteria Many (Negative)
[2024-12-10 19:00] LABS: FSH 64.5 mIU/ml; Free T4 1.11 ng/dl (0.78-2.19); Progesterone 9.33 ng/ml; Vitamin D, 25-OH*** 45.1 ng/mL (30-80)
[2024-12-10 19:13] LABS: TSH 1.45 uIU/ml (0.47-4.68)
[2024-12-10 19:15] LABS: Estradiol 65.4 pg/ml
[2024-12-10 20:02] LABS: Free T3 4.34 pg/ml (2.77-5.27)
[2024-12-11 17:27] LABS: DHEA Sulfate 76 ug/dL (19-205)
== END ==
LOC: RAD 07:04
PROVIDERS: ATTENDING PHYSICIAN Family Medicine Sports Medicine; FAMILY PHYSICIAN Family Medicine
DX: M25.562 Pain in left knee (principal); R53.83 Other fatigue; E55.9 Vitamin D deficiency, unspecified; G62.9 Polyneuropathy, unspecified; I48.0 Paroxysmal atrial fibrillation; E78.5 Hyperlipidemia, unspecified
CPT/HCPCS: 36415; 73564; 80053; 80061; 81003; 81015; 82306; 82627; 82670; 83001; 83036; 84144; 84270; 84402; 84403; 84439; 84443; 84481; 85025

== ENCOUNTER → 2024-12-12 15:03 | Outpatient (REF) | payer BC, SELFPAY ==
[2024-12-13 17:21] LABS: Urine Albumin 1+ (Neg - Trace); Urine Bilirubin Negative (Negative); Urine Character Clear (Clear); Urine Color Yellow; Urine Glucose Negative (Negative); Urine Ketone Negative (Negative); Urine Leukocyte Negative (Negative); Urine Nitrite Negative (Negative); Urine Occult Blood Negative (Negative); Urine Specific Gravity 1.015 (<1.030); Urine Urobilinogen Negative (Neg - 1+); Urine pH 6.5 (5.0-9.0)
[2024-12-13 18:46] LABS: Urine Squamous Cell >30 /LPF (Few)
[2024-12-13 18:47] LABS: Urine Bacteria Few (Negative); Urine Hyaline Cast 0-2 /LPF (0-2); Urine Mucus Moderate; Urine Red Blood Cell 0-2 /HPF (0-2); Urine White Cell 0-2 /HPF (0-5)
== END ==
LOC: CLAB 15:03
PROVIDERS: ATTENDING PHYSICIAN Specialist
DX: N39.0 Urinary tract infection, site not specified (principal)
CPT/HCPCS: 81003; 81015; 87086

== ENCOUNTER → 2024-12-18 08:07 | Outpatient (REF) | payer BC, SELFPAY ==
[2024-12-21 23:19] LABS: HPV, High Risk Not Detected; HPV, High Risk Source Cervical
== END ==
LOC: CPAP 08:07
PROVIDERS: ATTENDING PHYSICIAN Obstetrics & Gynecology Gynecology
DX: Z01.419 Encounter for gynecological examination (general) (routine) without abnormal findings (principal)
CPT/HCPCS: 87624; G0123

== ENCOUNTER → 2025-03-28 17:03 | Outpatient (REF) | payer BC, SELFPAY | LOC: WDC 17:03 | PROVIDERS: ATTENDING PHYSICIAN Obstetrics & Gynecology Gynecology; FAMILY PHYSICIAN Family Medicine | DX: Z12.31 Encounter for screening mammogram for malignant neoplasm of breast (principal) | CPT/HCPCS: 77063; 77067 ==

== ENCOUNTER → 2025-05-14 17:40 | Outpatient (REF) | payer BC, SELFPAY | LOC: CLAB 17:40 | PROVIDERS: Pathology Anatomic Pathology & Clinical Pathology; ATTENDING PHYSICIAN Physician Assistant Medical | DX: D48.5 Neoplasm of uncertain behavior of skin (principal) | CPT/HCPCS: 88305 ==

== ENCOUNTER → 2025-06-04 07:27 | Outpatient (REF) | payer BC, SELFPAY ==
[2025-06-04 09:27] LABS: Hematocrit 39.9 % (37.0-47.0); Hemoglobin 13.4 g/dL (12.0-16.0); Mean Corp Hgb Conc. 33.6 g/dL (33.0-37.0); Mean Corpuscular Volume 88.3 fL (81.0-99.0); Nucleated Red Blood Cells % 0 %; Platelet Count 283 10^3/uL (130-400); Red Cell Dist. Width 12.4 % (11.5-14.5)
[2025-06-04 09:51] LABS: ALT (SGPT) 23 U/L (0-35); AST (SGOT) 23 U/L (14-36); Albumin 4.5 g/dl (3.5-5.0); Alkaline Phosphatase 59 U/L (38-126); Blood Urea Nitrogen 16 mg/dl (7-17); Calcium 9.1 mg/dl (8.4-10.2); Carbon Dioxide 28 mmol/L (22-30); Chloride 105 mmol/L (98-107); Glucose 104 mg/dl (70-99); Potassium 4.3 mmol/L (3.5-5.1); Sodium 138 mmol/L (135-145); Total Protein 7.1 g/dl (6.3-8.2); eGFR > 60.00
[2025-06-04 10:01] LABS: FSH 64.5 mIU/ml; Vitamin D, 25-OH*** 48.8 ng/mL (30-80)
[2025-06-04 10:04] LABS: Free T3 7.05 pg/ml (2.77-5.27)
[2025-06-04 10:15] LABS: TSH 2.21 uIU/ml (0.47-4.68)
[2025-06-06 06:12] LABS: IGF-1 Z Score Calculation 0.2
== END ==
LOC: HWLAB 07:27
PROVIDERS: ATTENDING PHYSICIAN Family Medicine Sports Medicine; FAMILY PHYSICIAN Family Medicine
DX: N95.1 Menopausal and female climacteric states (principal); R53.83 Other fatigue; E55.9 Vitamin D deficiency, unspecified
CPT/HCPCS: 36415; 80053; 82306; 82627; 82670; 83001; 84144; 84270; 84305; 84402; 84403; 84439; 84443; 84481; 85025

== ENCOUNTER → 2025-09-03 07:38 | Outpatient (REF) | payer BC, SELFPAY ==
[2025-09-03 08:51] LABS: Hematocrit 41.1 % (37.0-47.0); Hemoglobin 13.7 g/dL (12.0-16.0); Mean Corp Hgb Conc. 33.3 g/dL (33.0-37.0); Mean Corpuscular Volume 90.5 fL (81.0-99.0); Nucleated Red Blood Cells % 0 %; Platelet Count 299 10^3/uL (130-400); Red Cell Dist. Width 12.2 % (11.5-14.5)
[2025-09-03 09:21] LABS: ALT (SGPT) 37 U/L (0-35); AST (SGOT) 34 U/L (14-36); Albumin 4.4 g/dl (3.5-5.0); Alkaline Phosphatase 62 U/L (38-126); Blood Urea Nitrogen 17 mg/dl (7-17); Calcium 9.3 mg/dl (8.4-10.2); Carbon Dioxide 27 mmol/L (22-30); Chloride 103 mmol/L (98-107); Glucose 94 mg/dl (70-99); Potassium 4.2 mmol/L (3.5-5.1); Sodium 139 mmol/L (135-145); Total Protein 7.1 g/dl (6.3-8.2); eGFR > 60.00
[2025-09-03 09:37] LABS: Vitamin D, 25-OH*** 40.2 ng/mL (30-80)
[2025-09-03 09:38] LABS: Free T3 5.74 pg/ml (2.77-5.27)
[2025-09-03 09:51] LABS: TSH 2.67 uIU/ml (0.47-4.68)
[2025-09-05 00:14] LABS: Thyroglobulin Antibodies <1.5 IU/mL (0.0-4.0)
[2025-09-05 02:50] LABS: Total T3 (Sendout) 139 ng/dL (80-200)
[2025-09-08 17:16] LABS: Total Testosterone,Female/Chil 30 ng/dL (9-55)
== END ==
LOC: REG 07:38
PROVIDERS: ATTENDING PHYSICIAN Family Medicine Sports Medicine; FAMILY PHYSICIAN Family Medicine
DX: R53.83 Other fatigue (principal)
CPT/HCPCS: 36415; 80053; 82306; 82627; 82670; 83520; 84144; 84270; 84402; 84403; 84443; 84480; 84481; 85025; 86376; 86800

== ENCOUNTER → 2025-09-04 09:08 | Outpatient (REF) | payer BC, SELFPAY | LOC: CLAB 09:08 | PROVIDERS: ATTENDING PHYSICIAN Obstetrics & Gynecology Gynecology | DX: N76.0 Acute vaginitis (principal) | CPT/HCPCS: 87070; 87102 ==